=== PATIENT | male | born 1970 | race Caucasian/White ===

== ENCOUNTER 2016-04-26 09:20 | Emergency (ER) | payer OTHER, MEDICARE ==
[2016-04-26 09:25] VITALS: BP 113/76
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
== END 2016-04-26 10:16 | disposition short-term general hospital (02) ==
LOC: ERH 09:20
DX: T22.212A Burn of second degree of left forearm, initial encounter (principal); T23.212A Burn of second degree of left thumb (nail), initial encounter; T23.252A Burn of second degree of left palm, initial encounter; X05.XXXA Exposure to ignition or melting of nightwear, initial encounter
CPT/HCPCS: 96374